=== PATIENT | female | born 1950 | race Two or more races ===

== ENCOUNTER → 2025-06-30 | Outpatient (CLI) | payer MEDICARE, SELFPAY ==
--- NOTE | 2025-06-30 16:00 | XR_ITS ---
Exam: MRI knee without contrast, right Date and time of exam: June 30, 2025, 1620 hours INDICATIONS: Injury to the knee June 09, 2025 with persistent pain and decreased range of motion and loss of function Technique: Multiple axial, coronal, and sagittal sections on the knee have been obtained. T2-Weighted sagittal, fat-suppressed images, TR 3,500, TE 62, T2 weighted coronal fat-saturated images, TR 3,500, TE 62 Proton density sagittal sections, TR 1800, TE 31. T-1 weighted coronal images, TR 524, TE 13.0 Findings: Medial meniscus anterior horn truncation inner margin Medial meniscus, body truncation inner margin., As well as meniscocapsular separation Posterior horn medial meniscus meniscocapsular separation. Lateral meniscus anterior horn is intact Lateral meniscus, body is intact Posterior horn lateral meniscus is intact Anterior cruciate ligament appears intact. Posterior cruciate ligament appears intact. Knee effusion is moderate. Quadriceps and patellar tendons appear intact. There is no evidence of tendinosis. Inflammatory change or fracture of Hoffa's fat pad is not seen. Medial patellar facet demonstrates moderate thinning. Lateral patellar facet cartilage demonstrates moderate thinning. Trochlear cartilage demonstrates moderate thinning. Marrow signal adequate. Medial collateral ligament appears intact. Illiotibial band and fibular collateral ligament are intact. Biceps femoris tendons appear intact. Medial femoral condylar articular cartilage demonstrates moderate thinning. Lateral femoral condylar articular cartilage demonstrates moderate thinning. Tibial plateau cartilage demonstrates moderate thinning. Impression: Meniscocapsular separation posterior horn medial meniscus as well as body of the medial meniscus Tears of the medial meniscus as above
== END | disposition home or self-care (01) ==
PROVIDERS: PCP Family Medicine; Referring Provider Family Medicine; Visit Provider Family Medicine
DX: S83.194A Other dislocation of right knee, initial encounter (principal); S83.241A Other tear of medial meniscus, current injury, right knee, initial encounter; X58.XXXA Exposure to other specified factors, initial encounter
CPT/HCPCS: 73721

== ENCOUNTER 2025-08-24 09:58 | Outpatient (AMB) | payer MEDICARE, SELFPAY ==
--- NOTE | 2025-08-24 10:36 | ORTHONT_ITS ---
Vital signs 08/24/25 10:46 Height 1.47 m Height Method Measured Weight 74.446 kg Weight Measurement Method Standing Scale BMI 34.2 BP 148/83 H Blood Pressure Source Automatic Cuff Blood Pressure Location Left Upper Arm Position Sitting Respiration 20 Pulse 97 Pulse Source Monitor Temp 97.8 F Temp Source Temporal Artery Scan Pulse Oximetry (%) 95 Oxygen Delivery Method Room Air Med/Allergies Allergies & Medications Allergies latex Allergy (Mild, Verified 08/24/25 10:46) Hives Medication Reconciliation canagliflozin 300 mg tablet (Invokana) 300 mg PO QDAY 07/07/20 [History Confirmed 08/24/25] metoprolol succinate 25 mg capsule sprinkle, ext. release 24 hr 25 mg PO QDAY 07/07/20 [History Confirmed 08/24/25] estradiol 0.01% (0.1 mg/gram) vaginal cream (Estrace) 2 g vaginal DIRECTED 02/08/23 [History Confirmed 08/24/25] oxybutynin chloride 10 mg tablet,extended release 24 hr 10 mg PO QDAY 02/08/23 [History Confirmed 08/24/25] vibegron 75 mg tablet (Gemtesa) 75 mg PO QDAY 08/12/23 [History Confirmed 08/24/25] Exam Exam Breathing is nonlabored. Patient has a normal mood and affect. Bilateral extremities were evaluated and demonstrates sensation intact to light touch. Palpable pedal pulses are present. No significant edema is present. Bilateral hips were examined. The patient has no pain with log roll of the hips. Internal rotation to 30 degrees and external rotation to 30 degrees is painless. Negative FADIR. Left knee was examined today. The left knee is in reasonable alignment. Range of motion from 0-120 degrees. Knee is stable to varus and valgus as well as AP translation with <5mm. Patient has a negative McMurrays. There is no pain with patellofemoral compression and no crepitus noted. The knee is nontender to palpation. The right knee was also examined. The right knee is in varus alignment. Range of motion from 0-115 degrees. Knee is stable to varus and valgus as well as AP translation with <5mm. Patient has a negative McMurrays. There is no pain with patellofemoral compression and no crepitus noted. The knee is tender to palpation medially. MRI demonstrates a posterior horn of the medial meniscal tear Assessment and Plan Problem List (1) Arthritis of knee, right: Status: Acute Plan: ASSESSMENT AND PLAN 1. Right knee pain: Persistent right knee pain has been present since mid-April 2025. The pain is localized to the front and sides of the knee. Physical examination shows tenderness, suggesting at least moderate arthritis. A weight-bearing x-ray of the right knee will be ordered to determine the severity of the arthritis. A cortisone injection will be administered today to help alleviate the pain. The patient will be sent for x-rays after the injection. Recommend knee cortisone injection as patient would like to proceed with conservative treatment at this time. The risks and benefits of the procedure were reviewed with the patient and patient gave verbal consent to continue with the procedure. Procedure: performed by Dr. Tobar Using sterile technique the Right knee was thoroughly prepped with alcohol, and approximately 1 cc of Depo-Medrol 80mg/mL and 4 cc of 0.2% ropivacaine was injected without resistance into the medial tibial femoral joint space. The patient tolerated the procedure. 2. Gastroesophageal reflux disease (GERD): GERD is present, making oral anti-inflammatories less suitable for managing knee pain. Alternative treatments such as cortisone injections are preferred to avoid exacerbating GERD symptoms. 3. Diabetes mellitus: Diabetes is well-controlled with an A1c of 6.7. No specific treatment plan changes are needed at this time. Advanced Care Planning Discussion Advance care planning discussed with:: patient Office Procedures GNS Level of Care Nursing/Assessment Patient Status: Initial/New Patient Nursing Assessment/Reassesment: Medication Reconciliation, Update PMH in EMR and Vital Signs Coordination of Care: Complex Care and Chronic Disease 1-5, Education Complex Pt/Fam, Consent,records obtained, informed consent, 1 Ins Authorization, Lab and Imaging orders, Results/Orders obtained and Staff clarify orders New Patient Charge New Patient Point Assignment: [id number] New Patient Point Charge: GARNISHER Level 4 ([id number]) Surgical Proc/IM SQ injection Minor Surgical Procedure: Yes (KNEE INJECTION) Medication Given Medication Given Medication Given: Yes Documented Dose Given: 1 Route: Infiitration Medication Given Medication Given Medication Given: Yes Documented Dose Given: 4 Route: Infiitration Office Meds methylprednisolone acetate 80 mg/mL suspension for injection Performing Provider: Nav Tobar MD Performing Location: [facility] Administered by: Nav Tobar MD on 08/24/25 11:25 Dose Route Admin Location Dispensed Lot Number Expiration Date Pack age [facility] [employer] 80 mg intra-articular 1 mL [id number] 04/24/27 [address]-7 [id number] [employer] ropivacaine (PF) 2 mg/mL (0.2 %) injection solution Performing Provider: Nav Tobar MD [facility] Administered by: Nav Tobar MD on 08/24/25 11:25 Dose Route Admin Location Dispensed Lot Number Expiration Date Pack age [facility] [place] [employer] 20 mL Infiltration 20 mL [id number] 01/22/27 9146-1331-27 0014 [id number] [facility] [place] Intake Visit Data Collection New Patient or Established: New Patient (never been to [facility]) Reason for Visit:: OA RIGHT KNEE Seen by Clinical Staff ONLY (RN/MA): No PCP or OBGYN visit in last 3 months: Yes Hx Now: No Do You Feel Safe at Home: Yes Authorities Contacted: N/A Questionairres Past Medical History Past Medical History Have you ever been diagnosed with any of the following: Neurological Problems Transient Ischemic Attacks (TIA): Yes Seizures: No Cardiology Problems Myocardial Infarction: Yes Hypercholesterolemia: Yes Congestive Heart Failure: No Hypertension: Yes Respiratory Problems Chronic Obstructive Pulmonary Disease (COPD): No Asthma: Yes Bronchitis: Yes Smoking: No Smoking Cessation Counseling: No Smoking Exposure: No Stomache/Intestinal Problems Hepatitis: No Hemorrhoids: Yes Gastroesophageal Reflux Disease: Yes Genital/Urinary Problems Renal Disease: No Reproductive Problems Endometriosis: Yes Previous Pregnancies: Yes (x2) Musculoskeletal Problems Osteoporosis: Yes Endocrine Problems Diabetes Mellitus Type 1: No Diabetes Mellitus Type 2: Yes Other Problems Falls: Yes Blood Transfusions: No Anesthesia Reactions: No MRSA: No Chicken Pox: No Measles: Yes Mumps: Yes Cancer: No Surgical History Hysterectomy: Yes Subjective Visit Visit for: new patient and knee (RIGHT) Immunization / Flu Flu Vaccine in the Last 12 Months: No Flu Vaccine Exclusion Criteria: Refused by Patient History of Present Illness Chief complaint: OA RIGHT KNEE Date of injury / onset of symptoms: 04/2025 HISTORY OF PRESENT ILLNESS INav, have obtained verbal consent from the patient, to be recorded during this encounter which may include, but not limited to, medical history, examination, treatment plans, and relevant health information.? Patient was informed that recording will be read and reviewed by myself before inclusion in the medical chart. The patient is a 75-year-old female who presents today with right knee pain. She reports that her meniscus is torn and the pain started in mid-April 2025. The pain is localized to the front and sides of her right knee, with no discomfort reported in the back of the knee. She has not had injections, physical therapy, or any form of anti-inflammatory treatment. She has been managing the pain with Tylenol. She has previously received cortisone injections for tennis elbow, which provided some relief. She has GERD and diabetes. Her last A1c was 6.7. Personal History Occupation: RETIRED Pain Pain level (0-10): 7 Pain duration: ON AND OFF Pain location: inside (medial) and anterior Pain quality: sharp, dull and aching Pain timing: night, increases with activity and stairs Associated signs & symptoms: weakness Ambulatory data Ambulatory device: none Treatments Number of previous injections: 0 Improvement with previous injections: No Number of Physical Therapy sessions: 0 Improvement with PT: No Improvement with NSAIDS: no Review of Systems Review of Systems: All systems negative unless otherwise noted in HPI.
[2025-08-24 10:46] VITALS: BP 148/83; PULSE 97; RESP 20; TEMP 36.6; O2SAT 95; BMI 34.2
--- NOTE | 2025-08-24 10:51 | XR_ITS ---
EXAMINATION: Bilateral knees 2 views Right knee PA lateral axial 3 views TECHNIQUE: Bilateral AP knees standing single view Bilateral PA knees standing flexion single view Standing right knee PA lateral, axial right knee 3 views total 5 views Date and time: August 24, 2025, 1111 hours INDICATIONS: Knee pain several years. FINDINGS: Moderate narrowing medial joint space right knee Milder osteoarthritis right lateral and patellofemoral joints Small right knee effusion Mild to moderate narrowing medial joint space left knee IMPRESSION: Moderate narrowing medial joint space right knee
== END 2025-08-24 11:01 | disposition home or self-care (01) ==
PROVIDERS: PCP Family Medicine; Referring Provider Family Medicine; Supervising Provider Orthopaedic Surgery Adult Reconstructive Orthopaedic Surgery; Visit Provider Orthopaedic Surgery Adult Reconstructive Orthopaedic Surgery
DX: M17.11 Unilateral primary osteoarthritis, right knee (principal); M25.561 Pain in right knee; K21.9 Gastro-esophageal reflux disease without esophagitis; E11.9 Type 2 diabetes mellitus without complications; I10 Essential (primary) hypertension
CPT/HCPCS: 20610; 73564; 99204; J1010; J2795; G0463